=== PATIENT | female | born 1995 | race Caucasian/White ===

== ENCOUNTER 2017-05-13 10:49 | Outpatient (CLI) | payer MEDICAID ==
[~2017-05-13] VITALS: Ht 157.5 cm; Wt 81.8 kg
[2017-05-13] VITALS (8 sets, daily range): BP systolic 103–117; BP diastolic 61–72; PULSE 81–102; TEMP 97.8–98.5
[~2017-05-13 10:49] MED LIST: CEPHALEXIN500 M1 PO; CHEW-IRON27 MG PO; PRENATAL1 TA1 PO; PRENATAL1 TA6 PO
[2017-05-13 12:33] LABS: COLLECTION METHOD CLEAN CATCH
[2017-05-13 12:38] LABS: BASO % 0.4 % (0.0-2.0); EOS # 0.2 (0.0-0.7); EOS % 2.1 % (0-4.0); GRAN # 6.4 (1.4-6.5); GRAN % 82.5 % (42.2-75.2); LYMPH # 0.6 (1.2-3.4); MEAN CELL VOLUME 95 fl (80.0-100.0); MEAN CORPUSCULAR HGB CONC 33 g/dl (33.0-37.0); MEAN PLATELET VOLUME 11.6 fl (7.4-10.4); MONO # 0.5 (0.1-0.6); MONO % 6.4 % (1.7-9.3); PLATELET COUNT 127 K/mm3 (130-400); RED BLOOD COUNT 3.26 M/mm3 (4.10-5.30); WHITE BLOOD COUNT 7.7 K/mm3 (4.8-10.8)
[2017-05-13 12:42] LABS: HEMOGLOBIN 10.3 g/dl (12.5-16.0); MEAN CORPUSCULAR HEMOGLOBIN 32 pg (27.0-31.0)
[2017-05-13 12:43] LABS: PH 8 (5-8); SQUAMOUS EPITHELIAL 0-2 /hpf; URINE APPEARANCE Clear; URINE BACTERIA None Seen /hpf; URINE BILIRUBIN Negative (NEGATIVE); URINE BLOOD Negative (NEGATIVE); URINE COLOR Yellow; URINE GLUCOSE Negative (NEGATIVE); URINE KETONE Negative (NEGATIVE); URINE LEUKOCYTE ESTERASE Negative (NEGATIVE); URINE PROTEIN(semi-quant) Negative (NEGATIVE); URINE RBC 0-2 /hpf; URINE UROBILINOGEN Negative (NEGATIVE); URINE WBC None Seen /hpf
[2017-05-13 12:49] LABS: AMPHETAMINE URINE NEGATIVE; BARBITURATES URINE NEGATIVE; BENZODIAZEPINES URINE NEGATIVE; BUPRENORPHINE URINE NEGATIVE; METHADONE URINE NEGATIVE; OPIATES URINE NEGATIVE; OXYCODONE URINE NEGATIVE; PHENCYCLIDINE URINE NEGATIVE; PROPOXYPHENE URINE NEGATIVE; THC CANNABINOIDS URINE POSITIVE; TRICYCLIC ANTIDEPRESS URINE NEGATIVE
== END 2017-05-13 16:46 | disposition home or self-care (01) ==
LOC: LDRO 10:49 → LDR 10:53 → LDRO 16:46
PROVIDERS: Obstetrics & Gynecology
DX: O47.02 False labor before 37 completed weeks of gestation, second trimester (principal); O99.89 Other specified diseases and conditions complicating pregnancy, childbirth and the puerperium; R10.2 Pelvic and perineal pain; J02.9 Acute pharyngitis, unspecified; Z3A.26 26 weeks gestation of pregnancy; F17.210 Nicotine dependence, cigarettes, uncomplicated; O99.332 Smoking (tobacco) complicating pregnancy, second trimester; F12.90 Cannabis use, unspecified, uncomplicated; O99.322 Drug use complicating pregnancy, second trimester; Z88.1 Allergy status to other antibiotic agents; Z88.0 Allergy status to penicillin
CPT/HCPCS: OP

== ENCOUNTER 2017-07-23 09:02 | Outpatient (CLI) | payer MEDICAID ==
[~2017-07-23] VITALS: Ht 157.5 cm; Wt 91.8 kg
[2017-07-23 09:19] VITALS: BP 112/71; PULSE 81; TEMP 98.4
[2017-07-23 10:10] VITALS: BP 107/65; PULSE 88
== END 2017-07-23 10:20 | disposition home or self-care (01) ==
LOC: LDRO 09:02
DX: O62.9 Abnormality of forces of labor, unspecified (principal); Z3A.36 36 weeks gestation of pregnancy

== ENCOUNTER 2017-08-03 22:18 | Outpatient (CLI) | payer MEDICAID ==
[~2017-08-03] VITALS: Ht 157.5 cm; Wt 90.9 kg
[2017-08-03 22:32] VITALS: BP 107/71; PULSE 91; TEMP 97.9
[2017-08-03] MEDS ORDERED: COLACE 100100 MG/CAP PO (22:40)
[2017-08-04 01:23] VITALS: BP 109/69; PULSE 80
== END 2017-08-04 01:40 | disposition home or self-care (01) ==
LOC: LDRO 22:18
DX: O62.9 Abnormality of forces of labor, unspecified (principal); Z3A.37 37 weeks gestation of pregnancy

== ENCOUNTER 2017-08-05 11:24 | Inpatient (IN) | payer MEDICAID ==
[~2017-08-05] VITALS: Ht 157.5 cm; Wt 91.4 kg
[2017-08-05] VITALS (26 sets, daily range): BP systolic 99–128; BP diastolic 52–73; PULSE 79–105; TEMP 97.8–98.6
[~2017-08-05 11:24] MED LIST changes: +COLACE 100100 MG/CAP PO
[2017-08-05 12:48] LABS: BASO # 0.1 (0.0-0.2); BASO % 0.4 % (0.0-2.0); EOS # 0.2 (0.0-0.7); EOS % 1.3 % (0-4.0); GRAN # 9.9 (1.4-6.5); GRAN % 76.1 % (42.2-75.2); LYMPH # 1.9 (1.2-3.4); LYMPH % 14.6 % (20.0-51.0); MEAN CELL VOLUME 92 fl (80.0-100.0); MEAN CORPUSCULAR HGB CONC 34 g/dl (33.0-37.0); MEAN PLATELET VOLUME 12.9 fl (7.4-10.4); MONO # 0.9 (0.1-0.6); MONO % 6.6 % (1.7-9.3); PLATELET COUNT 126 K/mm3 (130-400); RED BLOOD COUNT 3.27 M/mm3 (4.10-5.30); REDCELL DISTRIBUTION WIDTH-CV 12.9 % (11.5-14.5)
[2017-08-05 12:50] LABS: HEMOGLOBIN 10.3 g/dl (12.5-16.0); MEAN CORPUSCULAR HEMOGLOBIN 31 pg (27.0-31.0)
[2017-08-05 16:34] LABS: TRICYCLIC ANTIDEPRESS URINE NEGATIVE
[2017-08-06 05:07] LABS: TRICYCLIC ANTIDEPRESS URINE NEGATIVE
[2017-08-06 07:04] VITALS: BP 114/73; PULSE 81; TEMP 98.6
[2017-08-06] MEDS ORDERED: PERCOCET 325 MG1 TA2 PO (08:02)
[2017-08-06] MEDS ORDERED: MOTRIN 800800 MG/TAB PO (08:02)
[2017-08-06 11:20] VITALS: BP 120/54; PULSE 78; TEMP 98.5
[2017-08-06 15:55] VITALS: BP 128/72; PULSE 84; TEMP 98.2
[2017-08-07 06:35] VITALS: BP 113/63; PULSE 97; TEMP 98.2
== END 2017-08-07 14:00 | disposition home or self-care (01) | DRG 775 ==
LOC: LDRO 11:24 → LDR 12:00 → OB 12:00
PROVIDERS: Student in an Organized Health Care Education/Training Program
PROC: 10E0XZZ Delivery of Products of Conception, External Approach (ICD-10-PCS; principal; 2017-08-05)
DX: O99.334 Smoking (tobacco) complicating childbirth (principal); F17.210 Nicotine dependence, cigarettes, uncomplicated; Z3A.37 37 weeks gestation of pregnancy; Z37.0 Single live birth
CPT/HCPCS: J2590; J7120

== ENCOUNTER 2017-08-15 22:24 | Emergency (ER) | payer MEDICAID ==
[~2017-08-15] VITALS: Ht 157.5 cm; Wt 79.5 kg
[~2017-08-15 22:24] MED LIST changes: +MOTRIN 800800 MG/TAB PO; +PERCOCET 325 MG1 TA2 PO
[2017-08-15 22:30] VITALS: BP 134/88; PULSE 68; TEMP 98.9
[2017-08-15] MEDS ORDERED: CLEOCIN HCL300 MG PO (22:34)
[2017-08-15 23:09] LABS: COLLECTION METHOD CLEAN CATCH
[2017-08-15 23:16] LABS: BASO # 0.1 (0.0-0.2); BASO % 0.6 % (0.0-2.0); EOS # 0.3 (0.0-0.7); GRAN # 4.6 (1.4-6.5); GRAN % 57.4 % (42.2-75.2); HEMATOCRIT 29.7 % (37.0-47.0); HEMOGLOBIN 10.1 g/dl (12.5-16.0); LYMPH # 2.4 (1.2-3.4); LYMPH % 30.1 % (20.0-51.0); MEAN CELL VOLUME 90 fl (80.0-100.0); MEAN CORPUSCULAR HEMOGLOBIN 31 pg (27.0-31.0); MEAN CORPUSCULAR HGB CONC 34 g/dl (33.0-37.0); MEAN PLATELET VOLUME 10.6 fl (7.4-10.4); MONO # 0.6 (0.1-0.6); MONO % 7.3 % (1.7-9.3); PLATELET COUNT 265 K/mm3 (130-400); RED BLOOD COUNT 3.29 M/mm3 (4.10-5.30); REDCELL DISTRIBUTION WIDTH-CV 12.2 % (11.5-14.5)
[2017-08-15 23:18] LABS: MUCOUS Present /lpf; PH 6 (5-8); SQUAMOUS EPITHELIAL 0-2 /hpf; URINE APPEARANCE Clear; URINE BACTERIA Rare /hpf; URINE BILIRUBIN Negative (NEGATIVE); URINE BLOOD 3+ (NEGATIVE); URINE COLOR Yellow; URINE GLUCOSE Negative (NEGATIVE); URINE KETONE Negative (NEGATIVE); URINE LEUKOCYTE ESTERASE 2+ (NEGATIVE); URINE NITRATE Negative (NEGATIVE); URINE PROTEIN(semi-quant) Negative (NEGATIVE); URINE RBC >50 /hpf; URINE UROBILINOGEN Negative (NEGATIVE)
[2017-08-15 23:32] LABS: ALBUMIN 3.7 gm/dL (3.5-5.0); BILIRUBIN,TOTAL 0.2 mg/dL (0.0-1.0); CREATININE, serum 0.76 mg/dL (0.52-1.25); POTASSIUM 3.7 mmol/L (3.4-5.0); TOTAL PROTEIN 7.3 gm/dL (6.4-8.2)
[2017-08-16] MEDS ORDERED: MACROBID 1100 MG/CAP PO (00:30)
== END 2017-08-16 00:45 | disposition home or self-care (01) ==
LOC: COL.ER 22:24
PROVIDERS: Emergency Medicine
DX: O72.1 Other immediate postpartum hemorrhage (principal); N39.0 Urinary tract infection, site not specified; N81.2 Incomplete uterovaginal prolapse; F41.9 Anxiety disorder, unspecified; F32.9 Major depressive disorder, single episode, unspecified; Z87.891 Personal history of nicotine dependence

== ENCOUNTER 2017-08-18 16:06 | Emergency (ER) | payer MEDICAID ==
[~2017-08-18] VITALS: Ht 160 cm; Wt 81.8 kg
[~2017-08-18 16:06] MED LIST changes: +CLEOCIN HCL300 MG PO; +MACROBID 1100 MG/CAP PO
[2017-08-18 17:07] VITALS: TEMP 98.1
[2017-08-18 17:49] VITALS: BP 126/88; PULSE 66
== END 2017-08-18 17:50 | disposition home or self-care (01) ==
LOC: COL.ER 16:06
DX: O90.89 Other complications of the puerperium, not elsewhere classified (principal); Z87.42 Personal history of other diseases of the female genital tract; Z87.891 Personal history of nicotine dependence; Z88.0 Allergy status to penicillin; Z88.1 Allergy status to other antibiotic agents

== ENCOUNTER 2017-11-19 09:56 | Emergency (ER) | payer MEDICAID ==
[~2017-11-19] VITALS: Ht 157.5 cm; Wt 79.1 kg
[2017-11-19 10:00] VITALS: BP 127/83; TEMP 99.4
[2017-11-19] MEDS ORDERED: CEPHALEXIN500 M1 PO (10:47)
[2017-11-19] MEDS ORDERED: IBU600 MG PO (11:03)
[2017-11-19] MEDS ORDERED: TYLENOL 500MG500 MG PO (11:03)
[2017-11-19 11:37] VITALS: PULSE 93
== END 2017-11-19 11:37 | disposition home or self-care (01) ==
LOC: COL.ER 09:56
DX: J02.9 Acute pharyngitis, unspecified (principal); Z87.891 Personal history of nicotine dependence; Z79.891 Long term (current) use of opiate analgesic; Z79.1 Long term (current) use of non-steroidal anti-inflammatories (NSAID)

== ENCOUNTER 2018-03-27 11:54 | Emergency (ER) | payer MEDICAID ==
[~2018-03-27] VITALS: Ht 157.5 cm; Wt 76.6 kg
[~2018-03-27 11:54] MED LIST changes: +IBU600 MG PO; +TYLENOL 500MG500 MG PO
[2018-03-27 12:01] VITALS: BP 106/57; PULSE 82; TEMP 97.6
== END 2018-03-27 13:45 | disposition home or self-care (01) ==
LOC: COL.ER 11:54
DX: J06.9 Acute upper respiratory infection, unspecified (principal); F17.210 Nicotine dependence, cigarettes, uncomplicated; Z88.0 Allergy status to penicillin; Z88.1 Allergy status to other antibiotic agents

== ENCOUNTER → 2020-02-24 | Outpatient (CLI) | payer OTHER | LOC: MC.RAD 10:00 | DX: N63.21 Unspecified lump in the left breast, upper outer quadrant (principal); N63.11 Unspecified lump in the right breast, upper outer quadrant ==

== ENCOUNTER 2021-02-05 09:52 | Emergency (ER) | payer SELFPAY ==
[~2021-02-05] VITALS: Ht 157.5 cm; Wt 75.0 kg
[2021-02-05 10:08] VITALS: TEMP 98.6
[2021-02-05] MEDS ORDERED: MOBIC 7.5MG7.5 MG PO (11:36)
[2021-02-05 11:39] VITALS: BP 100/56; PULSE 69
== END 2021-02-05 11:40 | disposition home or self-care (01) ==
LOC: COL.ER 09:52
DX: S93.601A Unspecified sprain of right foot, initial encounter (principal); F17.210 Nicotine dependence, cigarettes, uncomplicated; X50.1XXA Overexertion from prolonged static or awkward postures, initial encounter; Y93.02 Activity, running; Y92.89 Other specified places as the place of occurrence of the external cause